=== PATIENT | female | born 1980 | race American Indian/Alaskan Native ===

== ENCOUNTER 2021-07-26 15:10 | Emergency (ER) | payer SELFPAY ==
[2021-07-26 15:56] VITALS: BP 113/61
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
[2021-07-26] MEDS ORDERED: IBUPROFEN 600 MG TAB PO ONE (16:55)
[2021-07-26] MEDS ORDERED: CYCLOBENZAPRINE 10 MG TAB PO ONE (16:55)
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
== END 2021-07-26 17:17 | disposition home or self-care (01) ==
LOC: ED 15:10
DX: M54.2 Cervicalgia (principal); M54.9 Dorsalgia, unspecified; M25.552 Pain in left hip; V49.59XA Passenger injured in collision with other motor vehicles in traffic accident, initial encounter; Y93.89 Activity, other specified; Y92.89 Other specified places as the place of occurrence of the external cause; Y99.8 Other external cause status
CPT/HCPCS: 72040; 72100; 99283